=== PATIENT | female | born 1990 | race Hispanic/Latino ===

== ENCOUNTER 2024-04-11 13:24 | Emergency (ER) | payer OTHER, SELFPAY ==
[2024-04-11 13:33] VITALS: BP 98/54; PULSE 81; RESP 17; TEMP 36.6; O2SAT 99
--- NOTE | 2024-04-11 14:38 | ED.WOUNDLAC ---
HPI - Wound/Laceration General Chief Complaint: Wound/Laceration <Radha Mcgrath PA-C - Last Filed: 04/12/24 11:35> Stated Complaint: L FINGER LAC <Radha Mcgrath PA-C - Last Filed: 04/12/24 11:35> Time Seen by Provider: 04/11/24 14:38 <Radha Mcgrath PA-C - Last Filed: 04/12/24 11:35> Focused HPI: This is a 33-year-old female that presents the emergency department for laceration of the left 2nd finger. Sustained just prior to arrival trying to cut an avocado. Unsure of last tetanus vaccination. Denies decreased range of motion or numbness. GENERAL: Well-appearing, well-nourished, and in no acute distress. HEAD: Normocephalic, atraumatic. CHEST: No respiratory distress. HEART: Regular rate SKIN: Left 2nd finger with 1.5cm flap laceration into subcutaneous tissue to the distal phalanx NEURO: ?Alert and oriented x3. Patient screened in triage and initial orders placed.? ?Additional care and disposition to be based upon?diagnostic testing and treatment. <Radha Mcgrath PA-C - Last Filed: 04/12/24 11:35> History of Present Illness HPI narrative: Agree with the HPI as described above <Robert Walden MD - Last Filed: 04/11/24 20:58> Related Data Allergies/Adverse Reactions: Allergies Allergy/AdvReac Type Severity Reaction Status Date / Time No Known Allergies Allergy Verified 04/11/24 13:25 <Radha Mcgrath PA-C - Last Filed: 04/12/24 11:35> Review of Systems Review of Systems: As reviewed above in HPI <Robert Walden MD - Last Filed: 04/11/24 20:58> PMFSH Past Medical History Medical History: Medical History (Updated 04/12/24 @ 11:35 by Radha Mcgrath PA-C) No active medical problems <Radha Mcgrath PA-C - Last Filed: 04/12/24 11:35> Social History Social History: Social History (Updated 04/12/24 @ 11:35 by Radha Mcgrath PA-C) Substance use: never <Radha Mcgrath PA-C - Last Filed: 04/12/24 11:35> Exam Narrative: GENERAL: Well-appearing, well-nourished, and in no acute distress. HEAD: Normocephalic, atraumatic. CHEST: No respiratory distress. HEART: Regular rate MSK: Full range of motion of all digits on the left hand, MCP PIP and D IP flexion and extension intact, no obvious tendinopathy or tendon injury. Plate Gauger strength full bilaterally. SKIN: Left 2nd finger with 1.5cm flap laceration into subcutaneous tissue to the distal phalanx NEURO: ?Alert and oriented x3. <Robert Walden MD - Last Filed: 04/11/24 20:58> Course Vital Signs Vital signs: Vital Signs Temperature 97.8 F 04/11/24 13:33 Pulse Rate 81 04/11/24 13:33 Respiratory Rate 17 04/11/24 13:33 Blood Pressure 98/54 L 04/11/24 13:33 Pulse Oximetry 99 04/11/24 13:33 Temperature 97.8 F 04/11/24 13:33 Pulse Rate 81 04/11/24 13:33 Respiratory Rate 17 04/11/24 13:33 Blood Pressure 98/54 L 04/11/24 13:33 Pulse Oximetry 99 04/11/24 13:33 <Radha Mcgrath PA-C - Last Filed: 04/12/24 11:35> Vital Signs Temperature 97.8 F 04/11/24 13:33 Pulse Rate 81 04/11/24 13:33 Respiratory Rate 17 04/11/24 13:33 Blood Pressure 98/54 L 04/11/24 13:33 Pulse Oximetry 99 04/11/24 13:33 Temperature 97.8 F 04/11/24 13:33 Pulse Rate 81 04/11/24 13:33 Respiratory Rate 17 04/11/24 13:33 Blood Pressure 98/54 L 04/11/24 13:33 Pulse Oximetry 99 04/11/24 13:33 <Robert Walden MD - Last Filed: 04/11/24 20:58> Procedures Laceration Laceration 1: Date: 04/11/24 <Robert Walden MD - Last Filed: 04/11/24 20:58> Time: 17:53 <Robert Walden MD - Last Filed: 04/11/24 20:58> Site: hand <MD Amna Engle Last Filed: 04/11/24 20:58> Side (If applicable): left <Robert Walden MD - Last Filed: 04/11/24 20:58> Size (cm): 1.5 <Robert Walden MD - Last Filed: 04/11/24 20:58> Description: linear and flap <Robert Walden MD - Last Filed: 04/11/24 20:58> Depth: simple, single layer <MD Amna Engle Last Filed: 04/11/24 20:58> Local Anesthetic: other anesthetic (Let gel) <MD Amna Engle Last Filed: 04/11/24 20:58> Amount of anesthesia used (mL): 3 <MD Amna Engle Last Filed: 04/11/24 20:58> Pre-repair: wound explored, irrigated extensively and deep structures intact <MD Amna Engle Last Filed: 04/11/24 20:58> ====== Skin Level ======: Skin layer closed with: nylon <Robert Walden MD - Last Filed: 04/11/24 20:58> Size (cm): 5-0 <MD Amna Engle Last Filed: 04/11/24 20:58> Number of sutures: 5 <MD Amna Engle Last Filed: 04/11/24 20:58> Technique: simple, interrupted <MD Amna Engle Last Filed: 04/11/24 20:58> ====== Subcutaneous Layer ======: ====== Muscle Layer ======: ====== Tendon Layer ======: Dressing: Pressure dressing <Robert Walden MD - Last Filed: 04/11/24 20:58> MDM - Wound/Laceration MDM Narrative Medical decision making narrative: 33-year-old female sustained a left hand laceration to her left 2nd digit. No tendon involvement and she has no exposed musculature, bleeding controlled with direct pressure. Full range of motion of the MCP PIP and D IP joint of all digits. Plate Gauger strength is full. Bleeding is controlled. Her tetanus will be updated here in the emergency department and her laceration repaired with procedure description above. Patient tolerated repair with sutures and is stable for discharge with wound care instructions and follow-up for suture removal and wound check. Patient verbalized understanding was safe for discharge at this time. <Robert Walden MD - Last Filed: 04/11/24 20:58> Medical Records Attestation: I reviewed the patient's medical records. <Robert Walden MD - Last Filed: 04/11/24 20:58> Critical Care Time Critical Care Time Critical Care Time: No <Radha Mcgrath PA-C - Last Filed: 04/12/24 11:35> Discharge Plan Discharge Clinical Impression: Laceration of finger of left hand Qualifiers: Encounter type: initial encounter Finger: index finger Damage to nail status: without damage Foreign body presence: without foreign body Qualified Code(s): S61.211A - Laceration without foreign body of left index finger without damage to nail, initial encounter <Radha Mcgrath PA-C - Last Filed: 04/12/24 11:35> Patient Disposition: Home, Self-Care <Radha Mcgrath PA-C - Last Filed: 04/12/24 11:35> Condition: Stable <SAÚL Butts Last Filed: 04/12/24 11:35> Instructions: Antibiotic Form, Care For Your Stitches (ED), Laceration (ED) <Radha Mcgrath PA-C - Last Filed: 04/12/24 11:35> Additional Instructions: Follow-up in 10-14 days for wound check and suture removal, soap and water for rinsing cleaning. I expect some oozing anterior bandages which again strange with the provided supplies. Return with any new or worsening concerns at any time. <Radha Mcgrath PA-C - Last Filed: 04/12/24 11:35> Patient Language: Kinyarwanda <Radha Mcgrath PA-C - Last Filed: 04/12/24 11:35> Follow-up/Referrals: UNKNOWN,DOCTOR [Primary Care Provider] - <Radha Mcgrath PA-C - Last Filed: 04/12/24 11:35> Time of Disposition: 17:28 <Radha Mcgrath PA-C - Last Filed: 04/12/24 11:35> 17:28 <Robert Walden MD - Last Filed: 04/11/24 20:58>
[2024-04-11] MEDS: TETANUS,DIPHTHERIA,AC PERTUSSIS ADULT (0.5 ML) BOOSTRIX IM (16:34)
[2024-04-11] MEDS: LIDOCAINE, EPINEPHRINE, TETRACAINE VISCOUS SOLN 3 ML TOPICAL (16:36)
--- OUTSIDE RECORDS SUMMARY | 2024-04-17 22:59 | XMS_ITS | Continuity of Care Document ---
Author Organization [facility] Address [address] [place] [address] Assessment No assessment recorded. Plan of Treatment Reminders Order Date Submit Date Provider Last Modified By Organization Details Last Modified Time Details Appointments None record ed. Lab None record ed. Referral None record ed. Procedures None record ed. Surgeries None record ed. Imaging None record ed. Medication Orders None record ed. Patient TargetsNo targets recorded. Patient InstructionsNo instructions recorded. Reason for Referral None Reported. Problems Name Problem SNOMED Code Status Onset Date Resolution Date Notes Provider Name and Address Organization Details Recorded Time Seborrhea Active FLACO Tineo [facility] BIPIN 2 14:58:12 Seborrheic psoriasis 58568313 Active FLACO Tineo [facility]IP[facility] 2 14:58:06 Problem Notes None recorded. Medical Equipment None Reported. Allergies No known drug allergies Medications Name Sig Start Date Stop Date Status Note LastModified by Organization Details LastModified Time clobetasol propionate 0.05 % oint 09/11 completed Not Available Not Available Not Available selenium sulfide 2.5 % lotn 09/11 completed Not Available Not Available Not Available ketoconazol e 2 % shampoo APPLY TO THE AFFECTED AREA(S), LATHER, LEAVE IN PLACE FOR 5 MINUTES, AND THEN RINSE OFF WITH WATER BY TOPICAL ROUTE ONCE DAILY 09/11 completed Not Available Not Available Not Available betamethaso ne valerate 0.1 % lotion APPLY A THIN LAYER TO THE AFFECTED AREA(S) BY TOPICAL ROUTE ONCE DAILY 09/11 completed Not Available Not Available Not Available Depo-Medrol 80 mg/mL suspension for injection 09/11 completed Not Available Not Available Not Available selenium sulfide 2.5 % shampoo APPLY TO THE AFFECTED AREA(S) BY TOPICAL ROUTE TWICE WEEKLY 09/11 completed Not Available Not Available Not Available Alexis Fe 1.5/30 (28) 1.5 mg-30 mcg (21)/75 mg (7) tablet TAKE 1 TABLET BY MOUTH ONCE DAILY DIRECTED active Not Available Not Available No t Available Vitals Date Recorded Body height Provider Name an d Address Organization Details Last Updated DateTime 01/28/2024 162.56 cm Antonia Velasquze MA [facility] 01/27 15:01:18 Social History Question Answer Notes LastModified by Organizat ion Details LastModified Time Tobacco Smoking Status Never Smoker MIRNA Watts, [facility] 03/23/2014 10:20:32 What Is Your Level Of Alcohol Consumption? Moderate Information not available 10/01/2023 Are You Blind Or Do You Have Difficulty Seeing? No Information not available 09/11/2021 What Is Your Level Of Caffeine Consumption? Moderate Soda Information not available 09/11/2021 In The 14 Days Before Symptom Onset, Have You Had Close Contact With A Laboratory-confir med COVID-19 While That Case Was Ill? No Information not available 09/11/2021 In The 14 Days Before Symptom Onset, Have You Had Close Contact With A Person Who Is Under Investigation For COVID-19 While That Person Was Ill? No Information not available 09/11/2021 Have You Been To An Area Known To Be High Risk For COVID-19? No Information not available 09/11/2021 Are You Currently Employed? Yes Information not available 09/11/2021 Are You Deaf Or Do You Have Serious Difficulty Hearing? No Information not available 09/11/2021 What Type Of Diet Are You Following? REGULAR [email or web address] Information not available 03/23/2014 Education 2 Year College [email or web address] Information not available 03/23/2014 What Is Your Occupation? Teacher Information not available 09/11/2021 Are There Any Guns Present In Your Home? No Information not available 03/23/2014 Hard Of Hearing Or Deaf In One Or Both Ears? No [email or web address] Information not available 03/23/2014 Legally Blind In One Or Both Eyes? No Wears Glasses [email or web address] Information not available 03/23/2014 What Was The Date Of Your Most Recent Tobacco Screening? 10/01/2023 Information not available 10/01/2023 Performs Monthly Self-breast Exam? No [email or web address] Information no t available 03/23/2014 What Is Your Relationship Status? Single Information not available 09/11/2021 Do You Use Your Seat Belt Or Car Seat Routinely? Yes Information not available 09/11/2021 Seat Belts Used Routinely Yes [email or web address] Information not available 03/23/2014 Are You Sexually Active? No Information not available 09/11/2021 Smoke Alarm In Home Yes [email or web address] Information not available 03/23/2014 Do You Have Smoke And Carbon Monoxide Detectors In Your Home? Yes Information not available 09/11/2021 Are You Passively Exposed To Smoke? No Information no t available 09/11/2021 How Much Tobacco Do You Smoke? No Information not available 03/23/2014 General Stress Level Medium [email or web address] Information not available 03/23/2014 Do You Feel Stressed (tense, Restless, Nervous, Or Anxious, Or Unable To Sleep At Night)? [id number] Information not available 09/11/2021 Do You Use Any Illicit Or Recreational Drugs? No Information not available 10/01/2023 Do You Use Sunscreen Routinely? Yes [email or web address] Information not available 03/23/2014 Has Tobacco Cessation Counseling Been Provided? No Information not available 09/11/2021 Do You Or Have You Ever Used Any Other Forms Of Tobacco Or Nicotine? No Information not available 09/11/2021 Sex: Unknown Functional Status Question Answer Note LastModified by Organization D etails LastModified Time Are you able to care for yourself? Yes Information n ot available 09/11/2021 What is your exercise level? None [email or web address] Information not available 03/23/2014 Mental Status None recorded. Family History Relationship Description Onset Age of this Age Resolved Age Notes LastModified by Organization Details LastModified Time Mother Malignant tumor of ovary 50 [email or web address] Not available 2021 15:40:37 Paternal Grandfather Diabetes mellitus 70 [email or web address] Not available 2021 15:39:06 Medical History Condition Response Coronary Artery Disease N Other N Atrial Fibrillation N High Blood Pressure N Thyroid Problems N Kidney or Bladder Problems N Depression N COPD N Blood Clots N GI Problems N Skin Problems N Eating Disorder N Anemia N Heart Attack ([place]) N Diabetes N Anxiety Disorder N Muscle, Joint, or Bone Problems N Seizures/Epilepsy N Arthritis N Acid Reflux (GERD) N Cancer N Stroke N Allergies N Asthma N ADHD N Substance Abuse N High Cholesterol N Hepatitis N Liver Disease N Schizophrenia N Headaches N Osteoporosis N Heart Failure N Gynecological History Statement/Question Response Flow Heavy Date of LMP 09/24/2023 Frequency of Cycle (Q days) 28 Menses Monthly Y Duration of Flow (days) 7 Age at Menarche 14 Current Control Method None LMP Definite Obstetrics History GPAL:G 0 P 0 0 0 0 Immunizations Vaccine Type Date Status Note Provider Nam e and Address Organization Details Recorded Time COVID-19, mRNA, LNP-S, PF, 100 mcg/0.5mL dose or 50 mcg/0.25mL dose 1 completed Jeni Mcgarry null, [place] - [facility] 09/28/2020 10:53:32 COVID-19, mRNA, LNP-S, PF, 100 mcg/0.5mL dose or 50 mcg/0.25mL dose 1 completed Jeni Mcgaryr [place], [place] [facility] 09/28/2020 10:53:51 DTaP 7 completed [place] [facility] 03/23/2014 10:16:06 DTaP 3 completed [place] [facility] 03/23/2014 10:16:06 DTaP 3 completed [place] [facility] 03/23/2014 10:16:06 DTaP 5 completed [place] [facility] 03/23/2014 10:16:06 DTaP 4 completed [place] [facility] 03/23/2014 10:16:06 Hib (PRP-T) 3 completed [place] [facility] 03/23/2014 10:16:43 Hib (PRP-T) 3 completed [place] [facility] 03/23/2014 10:16:43 Hib (PRP-T) 4 completed [place] [facility] 03/23/2014 10:16:43 Hib (PRP-T) 4 completed [place] [facility] 03/23/2014 10:16:43 Hep A, ped/adol, 2 dose 3 completed [place] [facility] 03/23/2014 10:17:16 Hep A, ped/adol, 2 dose 2 completed [place] [facility] 03/23/2014 10:17:16 Hep B, adolescent or pediatric 8 completed [place] [facility] 03/23/2014 10:17:41 Hep B, adolescent or pediatric 7 completed [place] [facility] 03/23/2014 10:17:41 Hep B, adolescent or pediatric 8 completed [place] [facility] 03/23/2014 10:17:41 HPV, quadrivalent 7 completed Paual [place] [facility] 03/23/2014 10:18:12 HPV, quadrivalent 7 completed [place] [facility] 03/23/2014 10:18:12 HPV, quadrivalent 7 completed [place] [facility] 03/23/2014 10:18:12 MMR 5 completed [place] [facility] 03/23/2014 10:18:49 MMR 4 completed [place] [facility] 03/23/2014 10:18:49 MMR 7 completed [place] [facility] 03/23/2014 10:18:49 MMR 7 completed [place] [facility] 03/23/2014 10:18:49 meningococcal MCV4, unspecified formulation 7 completed [place] [facility] 03/23/2014 10:19:14 polio, unspecified formulation 7 completed [place] [facility] 03/23/2014 10:20:40 polio, unspecified formulation 3 completed [place] [facility] 03/23/2014 10:20:40 polio, unspecified formulation 3 completed [place] [facility] 03/23/2014 10:20:40 polio, unspecified formulation 5 completed [place] [facility] 03/23/2014 10:20:40 polio, unspecified formulation 4 completed [place] [facility] 03/23/2014 10:20:40 polio, unspecified formulation 7 completed [place] [facility] 03/23/2014 10:20:40 Tdap 7 completed [place] [facility] 03/23/2014 10:21:01 varicella 7 completed [place] [facility] 03/23/2014 10:25:55 varicella 9 completed [place] [facility] 03/23/2014 10:25:55 Tdap 2 completed Agueda Barba [place] [facility] 09/11/2021 15:58:52 Influenza, split virus, trivalent, PF 4 completed JAMES Julio NP Attn: Accounting[address] [place], [address], [place] [facility] 02/01/2024 11:38:58 COVID-19, mRNA, LNP-S, PF, 50 mcg/0.5 mL 4 completed Antonia Velasquez MA [facility], [place] - [facility] 02/02/2024 11:37:46 Past Encounters Encounter ID Performer Location Encounter Start Date Encounter Closed Date Diagnosis/Indication Diagnosis SNOMED-CT Code Diagnosis ICD10 Code Diagnosis Note [id number] [facility] [address] [place] [address] 01/28/2024 14:55:20 01/28/2024 15:26:46 Administration of influenza vaccine 86855143 Z23 Active immunization 3387 [id number] Z23 Health Concerns Section Related Observation LastModified by Organization Detai ls LastModified Time None Recorded Concern Status LastModified by Organization Details LastModified Time None Recorded Payers Encounter Date Sequence Insurance Name Policy Number Policy Chan Covered Member ID Chan Member ID Guarantor Name 01/28/2024 1 [facility] [id number] Concepcion Rivera [id number] Concepcion Rivera OBGyn Episode No OBEpisode recorded.
--- OUTSIDE RECORDS SUMMARY | 2024-04-17 22:59 | XMS_ITS | Data Portability ---
Author Organization [facility] Address [address] [place] [address] Assessment No assessment recorded. Plan of Treatment Reminders Order Date Submit Date Provider Last Modified By Organization Details Last Modified Time Details Appointments None record ed. Lab fungus , cultur e, unspec ified specim en 2013 014 [facility], [address] [place] [address], [address], [place], [address], 5 18:02:48 CMP, serum or plasma 2023 024 [facility], [address], [place], [address], 4 03:36:36 lipid panel, serum 2023 024 [facility], [address], [place], [address], 4 03:36:36 CBC w/ auto diff 2023 024 [facility], [address], [place], [address], 4 03:36:37 TSH + free T4, serum 2023 024 [facility], [address], [place], [address], 4 03:36:35 HbA1c (hemog lobin A1c), blood 2023 024 [facility], [address], [place], [address], 4 03:36:37 pregna ncy test, urine 2023 024 MADYSON In-Office Order, Internal Use Only DO Not Attach Compendium DO Not Attach Compendium, Do Not Delete/merge, [id number] 4 15:09:32 urinal ysis, dipsti ck 2023 024 MADYSON In-Office Order, Internal Use Only DO Not Attach Compendium DO Not Attach Compendium, Do Not Delete/merge, [id number] 4 15:10:10 cultur e, urine 2023 M[facility]ON [facility], [address] [facility], [address], [place], [address], 4 03:36:38 Referral dermat ologis t referr al 2013 014 [email or web address] Not available 4 13:18:25 obstet rician and gyneco logist referr al 2023 024 [email or web address] [facility], [address], [place], [address], 4 07:53:08 dermat ologis t referr al 2023 024 LETTY Dutton MD (Dermatology) , [address], [address], [place], [address], 4 11:27:51 Procedures None record ed. Surgeries None record ed. Imaging None record ed. Medication Orders Depo-M edrol 80 mg/mL suspen maria guadalupe for inject ion 2013 014 [email or web address] Not available 2 14:56:54 ketoco nazole 2 % shampo o 2013 [facility], [address], [place], [id number], 2 15:10:04 betame thajesenia branch te 0.1 % lotion 2013 014 [facility], [address], [place], [id number], 15:10:06 Loestr in Fe 1.5/30 (28-Da y) 1.5 mg-30 mcg (21)/7 5 mg (7) tablet 2023 024 [facility], [address] [place], [address], 4 16:06:59 Patient TargetsNo targets recorded. Patient Instructions Encounter Date Encounter Id Patient Instructions Last Modified By Organization Details Last Modified Time 09/11/2021 [id number] tetanus and diphtheria booster: care instructions [email or web address] Not available 09/11/2021 15:43:12 hearing screening* yarauz Not availab le 09/11/2021 15:43:13 visual acuity* yarauz Not available 0 09/11/2021 15:43:13 schedule for wel l woman may use hydrogen peroxide and water equal parts mixture--apply? ? ? 4 drops into ear canal and do not use Qtips into ear canal only on the outside yarauz Not available 09/11/2021 15:50:48 see dentist ever y 6 months see eye doctor every 2 years or as necessary Influenza vaccine yearly Calcium in diet plus vitamin D daily exercise Increase water intake monitor diet? ? ?(low Carbs) see change person every 1-2 years yarauz Not available 09/11/2021 15:54:31 10/01/2023 [id number] A healthy lifestyle: care instructions [email or web address] Not available 10/01/2023 14:52:54 Reason for Referral Flight Test Engineer Referral for S eborrheic psoriasis Referring Physician: Coy Hope, Family Medicine, Encounter Date: 03/23/2014 Birth Attendant And Gynecologis t Referral for Family history of malignant neoplasm of ovary in first degree relative Referring Physician: [facility], Encounter Date: 10/01/2023 Flight Test Engineer Referral for P soriasis of scalp Referring Physician: Adrianne [facility], Encounter Date: 10/01/2023 Results Created Date Observation Date Name Description Value Unit Range Abnormal Flag Note LastModifiedBy Organization Detail LastModifiedTime 09/12/19 22 09/11/2021 heari ng scree tiana* Unknown Analyte normal Not Available In-Off ice Order Internal Use Only DO Not Attach Compendium DO Not Attach Compendium, Do Not Delete/merge, [id number] 09/11/2021 15:13:15 09/12/19 22 09/11/2021 heari ng scree tiana* Unknown Analyte normal Not Available In-Off ice Order Internal Use Only DO Not Attach Compendium DO Not Attach Compendium, Do Not Delete/merge, [id number] 09/11/2021 15:13:15 09/12/19 22 09/11/2021 heari ng scree tiana* Unknown Analyte normal Not Available In-Off ice Order Internal Use Only DO Not Attach Compendium DO Not Attach Compendium, Do Not Delete/merge, [id number] 09/11/2021 15:13:15 09/12/19 22 09/11/2021 heari ng scree tiana* Unknown Analyte normal Not Available In-Off ice Order Internal Use Only DO Not Attach Compendium DO Not Attach Compendium, Do Not Delete/merge, [id number] 09/11/2021 15:13:15 09/12/19 22 09/11/2021 heari ng scree tiana* Unknown Analyte normal Not Available In-Off ice Order Internal Use Only DO Not Attach Compendium DO Not Attach Compendium, Do Not Delete/merge, [id number] 09/11/2021 15:13:15 09/12/19 22 09/11/2021 heari ng scree tiana* Unknown Analyte normal Not Available In-Off ice Order Internal Use Only DO Not Attach Compendium DO Not Attach Compendium, Do Not Delete/merge, [id number] 09/11/2021 15:13:15 09/12/19 22 09/11/2021 visua l acuit y* R Eye Corrected 20/25 Not Available In-Off ice Order Internal Use Only DO Not Attach Compendium DO Not Attach Compendium, Do Not Delete/merge, [id number] 09/11/2021 15:13:49 09/12/19 22 09/11/2021 visua l acuit y* L Eye Corrected 20/25 Not Available In-Off ice Order Internal Use Only DO Not Attach Compendium DO Not Attach Compendium, Do Not Delete/merge, [id number] 09/11/2021 15:13:49 10/01/19 24 10/02/2023 TSH+F REE T4 TSH 2.810 uIU/m L 0.450- 4.500 Not Available [facility] ([facility]) [address] [place], [address], 10/03/2023 03:36:35 10/01/19 24 10/02/2023 TSH+F REE T4 T4,free(dire ct) 1.18 NG/dL 0.82-1 .77 Not Available [facility] ([facility]) [address] [place], [address], 10/03/2023 03:36:35 10/01/19 24 10/02/2023 LIPID PANEL WITH LDL/H DL RATIO cholesterol, total 171 mg/dL 100-19 9 Not Available [facility] ([facility]) [address] [place], [address], 10/03/2023 03:36:35 10/01/19 24 10/02/2023 LIPID PANEL WITH LDL/H DL RATIO triglyceride s 145 mg/dL 0-149 Not Available [facility] ([facility]) [address] [place], [address], 10/03/2023 03:36:35 10/01/19 24 10/02/2023 LIPID PANEL WITH LDL/H DL RATIO HDL cholesterol 42 mg/dL >39 Not Available [facility]) [address] [facility] [place], [address], 10/03/2023 03:36:35 10/01/19 24 10/02/2023 LIPID PANEL WITH LDL/H DL RATIO VLDL cholesterol galen 26 mg/dL 5-40 Not Available [facility] ([facility]) [address] [facility] [place], [address], 10/03/2023 03:36:35 10/01/19 24 10/02/2023 LIPID PANEL WITH LDL/H DL RATIO LDL chol calc ([facility]) 103 mg/dL 0-99 above high normal Not Available [facility] ([facility]) [address] [facility] [place], [address], 10/03/2023 03:36:35 10/01/19 24 10/02/2023 LIPID PANEL WITH LDL/H DL RATIO LDL/HDL ratio 2.5 ratio 0.0-3. 2 LDL/H DL Ratio Men Women 1/2 Avg.R isk 1.0 1.5 Avg.R isk 3.6 3.2 2X Avg.R isk 6.2 5.0 3X Avg.R isk 8.0 6.1 Not Available [facility] ([facility]) [address] [facility] [place], [address], 10/03/2023 03:36:35 10/01/19 24 10/02/2023 COMP. METAB OLIC PANEL (14) glucose 77 mg/dL 70-99 Not Available [facility] ([facility]) [address] [place], [address], 10/03/2023 03:36:36 10/01/19 24 10/02/2023 COMP. METAB OLIC PANEL (14) BUN 5 mg/dL 6-20 below low normal Not Available [facility] ([facility]) [address] [place], [address], 10/03/2023 03:36:36 10/01/19 24 10/02/2023 COMP. METAB OLIC PANEL (14) creatinine 0.57 mg/dL 0.57-1 .00 Not Available [facility] ([facility]) [address] [facility], [place], [address], 10/03/2023 03:36:36 10/01/19 24 10/02/2023 COMP. METAB OLIC PANEL (14) eGFR 125 mL/mi n/1.7 3 >59 Not Available [facility] ([facility]) [address] [facility], [place], [address], 10/03/2023 03:36:36 10/01/19 24 10/02/2023 COMP. METAB OLIC PANEL (14) BUN/creatini ne ratio 9 9-23 Not Available [facility] ([facility]) [address] [facility], [place], [address], 10/03/2023 03:36:36 10/01/19 24 10/02/2023 COMP. METAB OLIC PANEL (14) sodium 139 mmol/ L 134-14 4 Not Available [facility] ([facility]) [address] [facility], [place], [address], 10/03/2023 03:36:36 10/01/19 24 10/02/2023 COMP. METAB OLIC PANEL (14) potassium 4.0 mmol/ L 3.5-5. 2 Not Available [facility] ([facility]) [address] [facility], [place], [address], 10/03/2023 03:36:36 10/01/19 24 10/02/2023 COMP. METAB OLIC PANEL (14) chloride 103 mmol/ L 96-106 Not Available [facility] ([facility]) [address] [facility], [place], [address], 10/03/2023 03:36:36 10/01/19 24 10/02/2023 COMP. METAB OLIC PANEL (14) carbon dioxide, total 24 mmol/ L 20-29 Not Available [facility] ([facility]) [address] [place], [address], 10/03/2023 03:36:36 10/01/19 24 10/02/2023 COMP. METAB OLIC PANEL (14) calcium 9.1 mg/dL 8.7-10 .2 Not Available [facility] ([facility]) [address] [place], [address], 10/03/2023 03:36:36 10/01/19 24 10/02/2023 COMP. METAB OLIC PANEL (14) protein, total 7.2 g/dL 6.0-8. 5 Not Available [facility] ([facility]) [address] [place], [address], 10/03/2023 03:36:36 10/01/19 24 10/02/2023 COMP. METAB OLIC PANEL (14) albumin 4.2 g/dL 3.9-4. 9 Not Available [facility] ([facility]) [address] [place], [address], 10/03/2023 03:36:36 10/01/19 24 10/02/2023 COMP. METAB OLIC PANEL (14) globulin, total 3.0 g/dL 1.5-4. 5 Not Available [facility] ([facility]) [address] [place], [address], 10/03/2023 03:36:36 10/01/19 24 10/02/2023 COMP. METAB OLIC PANEL (14) bilirubin, total 0.4 mg/dL 0.0-1. 2 Not Available [facility] ([facility]) [address] [place], [address], 10/03/2023 03:36:36 10/01/19 24 10/02/2023 COMP. METAB OLIC PANEL (14) alkaline phosphatase 84 IU/L 44-121 Not Available [facility] ([facility]) [address] [facility], [place], [address], 10/03/2023 03:36:36 10/01/19 24 10/02/2023 COMP. METAB OLIC PANEL (14) AST (SGOT) 11 IU/L 0-40 Not Available [facility] ([facility]) [address] [facility], [place], [address], 10/03/2023 03:36:36 10/01/19 24 10/02/2023 COMP. METAB OLIC PANEL (14) ALT (SGPT) 7 IU/L 0-32 Not Available [facility] ([facility]) [address] [facility], [place], [address], 10/03/2023 03:36:36 10/01/19 24 10/02/2023 HEMOG LOBIN A1C hemoglobin A1C 5.3 % 4.8-5. 6 Predi abete s: 5.7 - 6.4 Diabe mirella: >6.4 Glyce tobin contr ol for adult s with diabe mirella: <7.0 Not Available [facility] ([facility]) [address] [facility], [place], [address], 10/03/2023 03:36:37 10/01/19 24 10/02/2023 CBC WITH DIFFE RENTI AL/PL ATELE T WBC 6.6 x10e3 /uL 3.4-10 .8 Not Available [facility] ([facility]) [address] [facility], [place], [address], 10/03/2023 03:36:37 10/01/19 24 10/02/2023 CBC WITH DIFFE RENTI AL/PL ATELE T RBC 4.46 x10e6 /uL 3.77-5 .28 Not Available [facility] ([facility]) [address] [facility], [place], [address], 10/03/2023 03:36:37 10/01/19 24 10/02/2023 CBC WITH DIFFE RENTI AL/PL ATELE T hemoglobin 13.5 g/dL 11.1-1 5.9 Not Available [facility] ([facility]) [address] [place], [address], 10/03/2023 03:36:37 10/01/19 24 10/02/2023 CBC WITH DIFFE RENTI AL/PL ATELE T hematocrit 40.5 % 34.0-4 6.6 Not Available [facility] ([facility]) [address] [facility], [place], [address], 10/03/2023 03:36:37 10/01/19 24 10/02/2023 CBC WITH DIFFE RENTI AL/PL ATELE T MCV 91 fL 79-97 Not Available [facility] ([facility]) [address] [facility], [place], [address], 10/03/2023 03:36:37 10/01/19 24 10/02/2023 CBC WITH DIFFE RENTI AL/PL ATELE T MCH 30.3 pg 26.6-3 3.0 Not Available [facility] ([facility]) [address] [place], [address], 10/03/2023 03:36:37 10/01/19 24 10/02/2023 CBC WITH DIFFE RENTI AL/PL ATELE T MCHC 33.3 g/dL 31.5-3 5.7 Not Available [facility] ([facility]) [address] [place], [address], 10/03/2023 03:36:37 10/01/19 24 10/02/2023 CBC WITH DIFFE RENTI AL/PL ATELE T RDW 12.7 % 11.7-1 5.4 Not Available [facility] ([facility]) [address] [place], [address], 10/03/2023 03:36:37 10/01/19 24 10/02/2023 CBC WITH DIFFE RENTI AL/PL ATELE T platelets 223 x10e3 /uL 150-45 0 Not Available [facility] ([facility]) [address] [facility], [place], [address], 10/03/2023 03:36:37 10/01/19 24 10/02/2023 CBC WITH DIFFE RENTI AL/PL ATELE T neutrophils 65 % notest ab. Not Available [facility] ([facility]) [address] [facility], [place], [address], 10/03/2023 03:36:37 10/01/19 24 10/02/2023 CBC WITH DIFFE RENTI AL/PL ATELE T lymphs 27 % notest ab. Not Available [facility] ([facility]) [address] [facility], [place], [address], 10/03/2023 03:36:37 10/01/19 24 10/02/2023 CBC WITH DIFFE RENTI AL/PL ATELE T monocytes 7 % notest ab. Not Available [facility] ([facility]) [address] [facility], [place], [address], 10/03/2023 03:36:37 10/01/19 24 10/02/2023 CBC WITH DIFFE RENTI AL/PL ATELE T eos 1 % notest ab. Not Available [facility] ([facility]) [address] [facility], [place], [address], 10/03/2023 03:36:37 10/01/19 24 10/02/2023 CBC WITH DIFFE RENTI AL/PL ATELE T basos 0 % notest ab. Not Available [facility] ([facility]) [address] [facility], [place], [address], 10/03/2023 03:36:37 10/01/19 24 10/02/2023 CBC WITH DIFFE RENTI AL/PL ATELE T neutrophils (absolute) 4.3 x10e3 /uL 1.4-7. 0 Not Available [facility] ([facility]) [address] [facility], [place], [address], 10/03/2023 03:36:37 10/01/19 24 10/02/2023 CBC WITH DIFFE RENTI AL/PL ATELE T lymphs (absolute) 1.8 x10e3 /uL 0.7-3. 1 Not Available [facility] ([facility]) [address] [facility], [place], [address], 10/03/2023 03:36:37 10/01/19 24 10/02/2023 CBC WITH DIFFE RENTI AL/PL ATELE T monocytes(ab solute) 0.4 x10e3 /uL 0.1-0. 9 Not Available [facility] ([facility]) [address] [facility], [place], [address], 10/03/2023 03:36:37 10/01/19 24 10/02/2023 CBC WITH DIFFE RENTI AL/PL ATELE T eos (absolute) 0.1 x10e3 /uL 0.0-0. 4 Not Available [facility] ([facility]) [address] [facility], [place], [address], 10/03/2023 03:36:37 10/01/19 24 10/02/2023 CBC WITH DIFFE RENTI AL/PL ATELE T baso (absolute) 0.0 x10e3 /uL 0.0-0. 2 Not Available [facility] ([facility]) [address] [facility], [place], [address], 10/03/2023 03:36:37 10/01/19 24 10/02/2023 CBC WITH DIFFE RENTI AL/PL ATELE T immature granulocytes 0 % notest ab. Not Available [facility] ([facility]) [address] [facility], [place], [address], 10/03/2023 03:36:37 10/01/19 24 10/02/2023 CBC WITH DIFFE RENTI AL/PL ATELE T immature grans (abs) 0.0 x10e3 /uL 0.0-0. 1 Not Available [facility] ([facility]) [address] [facility], [place], [address], 10/03/2023 03:36:37 10/01/19 24 10/03/2023 URINE CULTU RE, ROUTI NE urine culture, routine FINAL REPORT Not Available [facility] ([facility]) [address] [facility], [place], [address], 10/03/2023 03:36:38 10/01/19 24 10/03/2023 URINE CULTU RE, ROUTI NE result 1 NO GROWTH Not Available [facility] ([facility]) [address] [facility], [place], [address], 10/03/2023 03:36:38 10/01/19 24 10/01/2023 urina lysis , dipst ick Leukocytes Negati ve Not Available In-Office Order Internal Use Only DO Not Attach Compendium DO Not Attach Compendium, Do Not Delete/merge, 10/01/2023 14:49:44 10/01/19 24 10/01/2023 urina lysis , dipst ick Nitrite negati ve Not Available In-Office Order Internal Use Only DO Not Attach Compendium DO Not Attach Compendium, Do Not Delete/merge, 10/01/2023 14:49:44 10/01/19 24 10/01/2023 urina lysis , dipst ick Urobilinogen .2 Not Available In-Of fice Order Internal Use Only DO Not Attach Compendium DO Not Attach Compendium, Do Not Delete/merge, 10/01/2023 14:49:44 10/01/19 24 10/01/2023 urina lysis , dipst ick Protein Negati ve Not Available In-Office Order Internal Use Only DO Not Attach Compendium DO Not Attach Compendium, Do Not Delete/merge, 10/01/2023 14:49:44 10/01/19 24 10/01/2023 urina lysis , dipst ick pH 5.0 Not Available In-Office Order Internal Use Only DO Not Attach Compendium DO Not Attach Compendium, Do Not Delete/merge, 10/01/2023 14:49:44 10/01/19 24 10/01/2023 urina lysis , dipst ick Blood Large Not Available In-Office Order Internal Use Only DO Not Attach Compendium DO Not Attach Compendium, Do Not Delete/merge, 10/01/2023 14:49:44 10/01/19 24 10/01/2023 urina lysis , dipst ick Specific [place] 1.005 Not Available In-Off ice Order Internal Use Only DO Not Attach Compendium DO Not Attach Compendium, Do Not Delete/merge, 10/01/2023 14:49:44 10/01/19 24 10/01/2023 urina lysis , dipst ick Ketone Trace Not Available In-Office Order Internal Use Only DO Not Attach Compendium DO Not Attach Compendium, Do Not Delete/merge, 10/01/2023 14:49:44 10/01/19 24 10/01/2023 urina lysis , dipst ick Bilirubin Negati ve Not Available In-Office Order Internal Use Only DO Not Attach Compendium DO Not Attach Compendium, Do Not Delete/merge, 10/01/2023 14:49:44 10/01/19 24 10/01/2023 urina lysis , dipst ick Glucose Negati ve Not Available In-Office Order Internal Use Only DO Not Attach Compendium DO Not Attach Compendium, Do Not Delete/merge, 10/01/2023 14:49:44 10/01/19 24 10/01/2023 urina lysis , dipst ick Appearance Clear Not Available In-Offi ce Order Internal Use Only DO Not Attach Compendium DO Not Attach Compendium, Do Not Delete/merge, 10/01/2023 14:49:44 10/01/19 24 10/01/2023 urina lysis , dipst ick Color Yellow Not Available In-Office Order Internal Use Only DO Not Attach Compendium DO Not Attach Compendium, Do Not Delete/merge, 10/01/2023 14:49:44 10/01/19 24 10/01/2023 pregn katie test, urine HCG negati ve Not Available In-Office Order Internal Use Only DO Not Attach Compendium DO Not Attach Compendium, Do Not Delete/merge, [id number] 10/01/2023 14:49:37 Result Notes None recorded. Problems Name Problem SNOMED Code Status Onset Date Resolution Date Notes Provider Name and Address Organization Details Recorded Time Seborrhea Active Kelly Betancour t FLACO null, [place] - [facility] 2 14:58:12 Seborrheic psoriasis 76007117 Active Kelly Betancour t, [place] null, [place] - [facility] 2 14:58:06 Problem Notes None recorded. Medical [...] No t Available Vitals Date Recorded Body weight Body mass index (BMI) Body height Body temperature Systolic blood pressure Diastolic blood pressure Provider Name and Address Organization Details Last Updated DateTime 4 09514.9 73388 g 24.8 kg/m2 165.735 cm 98.2 [degF] 100 mm[Hg] 60 mm[Hg] MIRAN Watts [facility] 4 10:18:22 Date Recorded Respiratory rate Body weight Body height Heart rate Body mass index (BMI) Systolic blood pressure Diastolic blood pressure Provider Name and Address Organization Details Last Updated DateTime 5 18 /min 05239.7 0891 g 162.56 cm 60 /min 24.5 kg/m2 100 mm[Hg] 60 mm[Hg] Steven Monroyrox [facility] 5 18:30:01 Date Recorded Body height Body mass index (BMI) Body weight Body temperature Heart rate Oxygen saturation Oxygen saturation in Arterial blood by Pulse oximetry Respiratory rate Systolic blood pressure Diastolic blood pressure Provider Name and Address Organization Details Last Updated DateTime 2 164.47 cm 23.1 kg/m2 05410.9 5 g 98.4 [degF] 100 /min 98 % 98 % 20 /min 100 mm[Hg] 70 mm[Hg] Kelly adams MA [facility] 2 15:09:55 Date Recorded Body height Body mass index (BMI) Body weight Oxygen saturation Oxygen saturation in Arterial blood by Pulse oximetry Heart rate Respiratory rate Systolic blood pressure Diastolic blood pressure Provider Name and Address Organization Details Last Updated DateTime 4 162.56 cm 25.3 kg/m2 99380.7 8 g 98 % 98 % 91 /min 16 /min 109 mm[Hg] 73 mm[Hg] Maude Panda MA [facility] 4 14:25:59 Date Recorded Body height Provider Name an d Address Organization Details Last Updated DateTime 01/28/2024 162.56 cm Antonia Velasquez MA [facility] 01/27 15:01:18 Social History Question Answer Notes LastModified by Organizat ion Details LastModified Time Tobacco Smoking Status Never Smoker MIRNA Watts null, [facility] 03/23/2014 10:20:32 What Is Your Level Of [...] Type Of Diet Are You Following? REGULAR [email or web address] Information not available 03/23/2014 Education 2 Year College [email or web address] Information not available 03/23/2014 What Is Your Occupation? Teacher Information not available 09/11/2021 Are There Any Guns Present In Your Home? No [email or web address] Information not available 03/23/2014 Hard Of Hearing Or Deaf In One Or Both Ears? No [email or web address] Information not available 03/23/2014 Legally Blind In One Or Both Eyes? No Wears Glasses [email or web address] Information not available 03/23/2014 What Was The Date Of Your Most Recent Tobacco Screening? 10/01/2023 Information not available 10/01/2023 Performs Monthly Self-breast Exam? No Information no t available 03/23/2014 What Is Your Relationship Status? Single Information not available 09/11/2021 Do You Use Your Seat Belt Or Car Seat Routinely? Yes Information not available 09/11/2021 Seat Belts Used Routinely Yes [email or web address] Information not available 03/23/2014 Are You Sexually Active? No Information not available 09/11/2021 Smoke Alarm In Home Yes [email or web address] Information not available 03/23/2014 Do You Have Smoke And Carbon Monoxide Detectors In Your Home? Yes Information not available 09/11/2021 Are You Passively Exposed To Smoke? No Information no t available 09/11/2021 How Much Tobacco Do You Smoke? No Information not available 03/23/2014 General Stress Level Medium [email or web address] Information not available 03/23/2014 Do You Feel Stressed (tense, Restless, Nervous, Or Anxious, Or Unable To Sleep At Night)? [id number] Information not available 09/11/2021 Do You Use Any Illicit Or Recreational Drugs? No Information not available 10/01/2023 Do You Use Sunscreen Routinely? Yes Information not available 03/23/2014 Has Tobacco Cessation [...] 09/11/2021 What is your exercise level? None [email or web address] Information not available 03/23/2014 Mental Status None [...] Eating Disorder N Anemia N Heart Attack (RI) N Diabetes N Anxiety Disorder N Muscle, [...] Jeni Mcgar[place], [place] [facility] 09/28/2020 10:53:51 DTaP 7 completed [place] [facility] 03/23/2014 10:16:06 DTaP 3 completed [place] montez[place] [facility] 03/23/2014 10:16:06 DTaP 3 completed [place] [facility] 03/23/2014 10:16:06 DTaP 5 completed [place] [facility] 03/23/2014 10:16:06 DTaP 4 completed [place] [facility] 03/23/2014 10:16:06 Hib (PRP-T) 3 completed [place] [facility] 03/23/2014 10:16:43 Hib (PRP-T) 3 completed [place] [facility] 03/23/2014 10:16:43 Hib (PRP-T) 4 completed [place]tez[place] - [facility] 03/23/2014 10:16:43 Hib (PRP-T) 4 [place] [facility] 03/23/2014 10:16:43 Hep A, ped/adol, 2 dose 3 [place] [facility] 03/23/2014 10:17:16 Hep A, ped/adol, 2 dose 2 completed [place] [facility] 03/23/2014 10:17:16 Hep B, adolescent or pediatric 8 completed [place] [facility] 03/23/2014 10:17:41 Hep B, adolescent or pediatric 7 completed [place] [facility] 03/23/2014 10:17:41 Hep B, adolescent or pediatric 8 completed [place] [facility] 03/23/2014 10:17:41 HPV, quadrivalent 7 completed [place] [facility] 03/23/2014 10:18:12 HPV, quadrivalent 7 completed [place] [facility] 03/23/2014 10:18:12 HPV, quadrivalent 7 completed [place] [facility] 03/23/2014 10:18:12 MMR 5 completed [place] [facility] 03/23/2014 10:18:49 MMR 4 completed [place] [facility] 03/23/2014 10:18:49 MMR 7 completed [place] [facility] 03/23/2014 10:18:49 MMR 7 completed [place] [facility] 03/23/2014 10:18:49 meningococcal MCV4, unspecified formulation 7 completed [place] [facility] 03/23/2014 10:19:14 polio, unspecified formulation 7 completed [place] [facility] 03/23/2014 10:20:40 polio, unspecified formulation 3 completed [place] [facility] 03/23/2014 10:20:40 polio, unspecified formulation 3 completed [place] [facility] 03/23/2014 10:20:40 polio, unspecified formulation 5 completed [place] [facility] 03/23/2014 10:20:40 polio, unspecified formulation 4 completed [place] [facility] 03/23/2014 10:20:40 polio, unspecified formulation 7 completed [place] [facility] 03/23/2014 10:20:40 Tdap 7 completed [place] [facility] 03/23/2014 10:21:01 varicella 7 completed [place] [facility] 03/23/2014 10:25:55 varicella 9 completed [place] [facility] 03/23/2014 10:25:55 Tdap 2 completed Agueda Barba [place] [facility] 09/11/2021 15:58:52 Influenza, split virus, trivalent, PF 4 completed JAMES Julio NP Attn: Accounting,[address] [place], [address], [place] [facility] 02/01/2024 11:38:58 COVID-19, mRNA, LNP-S, PF, 50 mcg/0.5 mL 4 completed Antonia Velasquez [place], [place] [facility] 02/02/2024 11:37:46 Past Encounters Encounter ID Performer Location Encounter Start Date Encounter Closed Date Diagnosis/Indication Diagnosis SNOMED-CT Code Diagnosis ICD10 Code Diagnosis Note [id number] [facility] [address] [place] [address] 03/23/2014 10:05:46 03/27/2014 13:18:25 Seborrheic psoriasis [id number] [address] 11/03/2014 17:24:03 11/04/2014 13:05:22 [id number] [facility] [address] [place] [address] 09/11/2021 14:53:29 09/12/2021 13:44:04 History and physical examination, pre-employment 569933381 Z02.1 Body mass index 20-24 - normal 862257891 Z68.23 BMI 23 Administra tion of diphtheria, pertussis, and tetanus vaccine 092462245 Z23 Impacted c erumen in right ear 8365283641 748718 H61.21 use mixture of hydrogen peroxide and water equal parts and apply 4 drops to ear canal twice daily for 1 week no QTIP into ear canals only on the outside Depression screening 171 767948 Z13.31 negative [id number] JUAQUIN FRANCIS [facility] [address] [place] [address] 10/01/2023 14:16:44 10/01/2023 14:58:11 Depression screening 067585700 Z13.31 PHQ 0 Family his tory of malignant neoplasm of ovary in first degree relative [id number] 106 Z80.41 mom diagnosed age 50 due to abd painmother 's 2 sisters with ovarian cancer, unknown agerefer to [facility] 21715 5002 Z30.40 heavy cycles, lasts 7 days, menstrual sx of abd cramping and breast tenderness for 3 wks before cyclept is not sexually activerequ esting to trial OCPadvised pt of ADR, BTB/irregu lar periods for 3-6 months, take pill at the same time everyday, placebo week is when period should start, take OCP for 1 wk before unprotecte d intercours eurine preg negativetr ial loestrin fef/u in 3 months Psoriasis of scalp 29689 8008 L40.9 requesting Derm referral Overweight 273241768 E66 .3 BMI 25.3discus sed increasing exercise and healthier food options, high protein, low fat diet Microscopic hematuria 19 9426192 R31.29 found in work physical 2 months agopt reports she just finished her menstrual cycle, can re-check urine in 2 wksurine dip showed large blood, will send for culture/UA (called lab [facility] to add UA) [id number] [facility] [address] [place] [address] 01/28/2024 14:55:20 01/28/2024 15:26:46 Administration of influenza vaccine 30325353 Z23 Active immunization 3387 9002 Z23 Health Concerns Section Related Observation LastModified by Organization Detai ls LastModified Time None Recorded Concern Status LastModified by Organization Details LastModified Time None Recorded Advance Directives Directive None Recorded Payers Encounter Date Sequence Insurance Name Policy Number Policy Chan Covered Member ID Chan Member ID Guarantor Name 03/23/2014 1 [facility] (MEDICAID HMO) Concepcion Rivera [id number] Concepcion Rivera 11/03/2014 1 [facility] (MEDICAID HMO) Concepcion Rivera [id number] Concepcion Rivera 09/11/2021 1 *SELF PAY* Va reynasa Hensleyez 10/01/2023 1 [facility] [id number] Concepcion Rivera [id number] Concepcion Rivera 01/28/2024 1 [facility] [id number] Concepcion Rivera [id number] Concepcion Rivera Notes Date Note Type Note Provider Name and Address Organization Details Recorded Time 09/11/2021 text/html 31 y/o HF presents for work physical no complaints. 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 She needs a tdap booster. She has never had a pap. CHAPO Bourgeois Attn: Accounting,[address] [place], [address], [facility] 09/11/2021 15:54:41 10/01/2023 text/html Pt presents to establish care as a new patient. Reports she had work physical 2 months ago and was told she has blood in her urine. Pt denies visible hematuria or urinary sx. C/o heavy menstrual cycles, lasts 7 days, changes pad every hour, can't get out of bed due to fatigue and has to call off work. States that for 3 wks before her cycle she has abdominal cramping and breast tenderness. Pt is not sexually active. Pt's Mother diagnosed with ovarian cancer at age 50, mother's two sisters also had ovarian cancer. Denies fever, chills, chest pain, SOB, n/v/d, abd pain, dizziness, weakness, or headaches. JUAQUIN FRANCIS Attn: Accounting,[address] [place], [address], [facility] 10/02/2023 15:44:13 OBGyn Episode No OBEpisode recorded.
== END 2024-04-11 18:38 | disposition home or self-care (01) ==
PROVIDERS: Emergency Provider Student in an Organized Health Care Education/Training Program
DX: S61.211A Laceration without foreign body of left index finger without damage to nail, initial encounter (principal); Z23 Encounter for immunization; W26.0XXA Contact with knife, initial encounter; Y93.G1 Activity, food preparation and clean up
CPT/HCPCS: 12001; 90471; 90715; 99282